=== PATIENT | male | born 1945 | race Caucasian/White ===

== ENCOUNTER → 2017-11-13 | Day surgery (SDC) | payer MEDICARE ==
[2017-11-12 11:15] LABS: BASOPHILS % 0.5 % (0.0-1.0); EOSINOPHILS # (AUTO) 0.2 (0.0-0.4); EOSINOPHILS % 4.2 % (0.0-6.0); HEMATOCRIT 37.6 % (38.2-49.6); HEMOGLOBIN 12.8 g/dL (14.0-18.0); LYMPHOCYTES # (AUTO) 1.9 (1.0-3.2); LYMPHOCYTES % 33.1 % (18.0-39.1); MEAN CORPUSCULAR HEMOGLOBIN 32.2 pg (28-32); MEAN CORPUSCULAR VOLUME 94.5 fL (81-99); MONOCYTES # (AUTO) 0.7 (0.2-0.8); MONOCYTES % 11.7 % (4.4-11.3); NEUTROPHILS # (AUTO) 2.9 (2.1-6.9); NEUTROPHILS % 50.2 % (38.7-80.0); PLATELET COUNT 167 x10e3/uL (140-360); RED BLOOD COUNT 3.98 x10e6/uL (4.3-5.7); RED CELL DISTRIBUTION WIDTH 13.3 % (11.7-14.4)
--- NOTE | 2017-11-12 11:22 | Diagnostic Imaging Report ---
PROCEDURE: X-RAY CHEST, TWO VIEWS COMPARISON: None. INDICATIONS: PREOPERATIVE CHEST XRAY FOR RIGHT KNEE SURGERY FINDINGS: The lungs are hyperinflated with increased AP diameter of the chest. Biapical pleural-parenchymal scar. No airspace consolidation, pleural effusion, or pneumothorax. Tortuosity of the thoracic aorta. Normal heart size. No pulmonary edema. No acute osseous abnormality. CONCLUSION: No acute cardiopulmonary abnormality. Pulmonary hyperinflation in keeping with emphysema. Dictated by: Karsten Mathis M.D. on 11/12/2017 at 11:22 Electronically approved by: Karsten Mathis M.D. on 11/12/2017 at 11:22
[~2017-11-13] MED LIST: BUPIVACAINE 0.5%/EPI 30 ML SDV INJ ONE; CEFAZOLIN SOD 2 GM/D5W 50ML 50 ML IV ONE; DEXAMETHASONE SOD PHOS INJ 4 MG/ML VIAL ONE; DICYCLOMINE HCL10 MG PO; DOXAZOSIN MESYLA8 MG PO; EPHEDRINE SULFATE INJ 50 MG/10 ML SYR ONE; FENTANYL CITRATE/PF 100MCG/2 ML INJ ONE; GABAPENTIN300 MG PO; GLYCOPYRROLATE INJ 1MG/ 5 ML SYR ONE; LIDOCAINE HCL 2% LOCAL INJ 5 ML SDV VIAL INJ ONE; MIDAZOLAM HCL 2 MG/2 ML VIAL ONE; NORCO 10-325 T1 EACH PO; ONDANSETRON HCL INJ 2 MG/ML VIAL ONE; ONDANSETRON PO; PROPOFOL IV EMULSION 10 MG/ML 20 ML VIAL ONE; SEVOFLURANE INHAL SOLN 250 ML PEN BTL ONE; ZANTAC150 MG PO
--- OUTSIDE RECORDS SUMMARY | 2017-11-13 13:15 | XMS REPORT ---
[facility] Unknown Phone Unavailable Care Team Providers Care Bell [place]et Name Role Phone RAUL CORNEJO Unavailable Unavailable Problems This patient has no known problems. Allergies, Adverse Reactions, Alerts This patient has no known allergies or adverse reactions. Medications This patient has no known medications. Results Test Description Test Time Test Comments Text Results Atomic Results Result Comments CHEST 2 VIEWS [place] [address] Patient Name: BEATRIZ FROST MR #: [id number] : 1945 Age/Sex: 72/M Req # : [id number] Adm Physician: Ordered by: RAUL CORNEJO MD Report #: [id number] Location: OR Room/Bed: Procedure: [id number] DX/CHEST 2 VIEWS Exam Date: 11/12/17 Exam Time : 1100 REPORT STATUS: Signed PROCEDURE: X-RAY CHEST, TWO VIEWS COMPARISON: None. INDICATIONS: PREOPERATIVE CHEST XRAY FOR RIGHT KNEE SURGERY FINDINGS: The lungs are hyperinflated with increased AP diameter of the chest. Biapical pleural-parenchymal scar. No airspace consolidation, pleural effusion, or pneumothorax. Tortuosity of the thoracic aorta. Normal heart size. No pulmonary edema. No acute osseous abnormality. CONCLUSION: No acute cardiopulmonary abnormality. Pulmonary hyperinflation in keeping with emphysema. Dictated by: Zandra Potts M.D. on 11/12/2017 at 11:22 Electronically approved by: Zandra Potts M.D. on at 11:22 Dictated By: ZANDRA POTTS MD 21 Transcribed By: SALVADOR on 11/12/171121 COPY TO: RAUL CORNEJO MD
--- NOTE | 2017-11-13 18:08 | Operative Report ---
DATE OF PROCEDURE: November 13, 2017 PREOPERATIVE DIAGNOSES 1. Right knee medial meniscus tear. 2. Right knee degenerative joint disease of the knee. POSTOPERATIVE DIAGNOSES 1. Right knee medial meniscus tear. 2. Right knee lateral meniscus tear. 3. Right knee degenerative joint disease of the knee. PROCEDURES PERFORMED 1. Right knee examination under anesthesia. 2. Right knee arthroscopy. 3. Right knee partial medial meniscectomy. 4. Right knee partial lateral meniscectomy. 5. Right knee chondroplasty of the medial femoral condyle, medial tibial plateau, lateral femoral condyle and lateral tibial plateau. 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 ANESTHESIA: General endotracheal intubation anesthesia. IV FLUIDS: Per the anesthesia record. DESCRIPTION OF PROCEDURE: Mr. Guerrero was taken to the operating room and placed in the supine position on the operating table. Following induction of general anesthesia as well as endotracheal intubation, the patient's right lower extremity was examined under anesthesia. He was found to have a mild effusion within the knee joint but an otherwise ligamentously stable knee. The patient's lower extremity was prepped and draped in the standard surgical fashion. A 2-portal technique was used to provide this patient arthroscopic evaluation of the knee joint. Examination of the suprapatellar pouch and medial and lateral gutters found no evidence of pathology. The scope was advanced to the medial compartment. Examination of the medial compartment demonstrated a torn and macerated medial meniscus. 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 A combination of biting forceps and motorized shaver was used to resect the torn portion of the meniscus. Chondroplasties of the medial femoral condyle and medial tibial plateau were performed at this time. Scope was advanced to the intercondylar notch. The anterior cruciate ligament was identified and found to be intact. The scope was advanced to the lateral compartment. There was chondromalacia of the articulating surfaces. There was also tearing of the lateral meniscus. A combination of biting forceps and a motorized shaver was used to resect the torn portion of the meniscus. Chondroplasties of the lateral femoral condyle and lateral tibial plateau were performed at this time. The scope was then placed in the suprapatellar pouch, and the knee was deflated of its sterile normal saline. The portal sites were closed, and the knee was injected with 1/2 percent Marcaine with epinephrine. Sterile dressings were applied. The patient was then awakened and taken to the postanesthesia care unit in stable condition. Job#: [id number]
== END | disposition home or self-care (01) ==
LOC: OR 13:12
PROVIDERS: ATTEND Specialist
DX: S83.221A Peripheral tear of medial meniscus, current injury, right knee, initial encounter (principal); S83.281A Other tear of lateral meniscus, current injury, right knee, initial encounter; M17.11 Unilateral primary osteoarthritis, right knee; J44.9 Chronic obstructive pulmonary disease, unspecified; I10 Essential (primary) hypertension; Z01.810 Encounter for preprocedural cardiovascular examination; V89.2XXA Person injured in unspecified motor-vehicle accident, traffic, initial encounter; Z01.812 Encounter for preprocedural laboratory examination; Z01.818 Encounter for other preprocedural examination
CPT/HCPCS: 29880; 36415; 71046; 85025; 93005; J1100; J2001; J2250; J2405